=== PATIENT | female | born 2005 | race Caucasian/White ===

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

== ENCOUNTER 2024-11-10 16:51 | Outpatient (REF) | payer MEDICAID, SELFPAY ==
--- OUTSIDE RECORDS SUMMARY | 2024-11-10 19:04 | XMS_ITS | Clinical Summary ---
Author Organization [facility] Address [address] [place] [address] Care Team Providers Care Haunted History Tour Guide Name Role Phone Unavailable Primary Care Provider Unavailabl e Social History Tobacco Use Types Packs/Day Years Used Date Smoking Tobacco: Never Assessed Comments Unknown Sex and Gender Information Value Date Recorded Sex Assigned at Not on file Legal Sex Female 6:15 AM EST Gender Identity Not on file Sexual Orientation Not on file Plan of Treatment Health Maintenance Due Date Last Done Comments Gonorrhea/Chlamydia Screening 2004 Varicella Vaccines (1 of 2 - 13+ 2-dose series) 2017 HPV Vaccines (1 - 3-dose series) 10/21/2019 Meningococcal B Vaccine (1 o f 2 - Standard) 2020 DTaP,Tdap,and Td Vaccines (1 - Tdap) 10/21/2023 Hepatitis B Vaccines (1 of 3 - 19+ 3-dose series) 10/21/2023 COVID-19 Vaccine (1 - 2023-2 5 season) 2024 Influenza Vaccine (Season Ended) 2025 HIB Vaccines Aged Out No longer eligi ble based on patient's age to complete this topic Hepatitis A Vaccines Aged Out No long er eligible based on patient's age to complete this topic IPV Vaccines Aged Out No longer eligi ble based on patient's age to complete this topic MMR Vaccines Aged Out No longer eligi ble based on patient's age to complete this topic Meningococcal ACWY Vaccine Aged Out N o longer eligible based on patient's age to complete this topic Pneumococcal Vaccine: Pediat rics (0 to 5 Years) and At-Risk Patients (6 to 64 Years) Aged Out No longer eligible b ased on patient's age to complete this topic RSV Immunization Patients Un gely 20 months Aged Out No longer eligible b ased on patient's age to complete this topic
--- OUTSIDE RECORDS SUMMARY | 2024-11-10 19:04 | XMS_ITS | Encounter Summary ---
Author Organization [employer] Address [address] [place] [address] Care Team Providers Care Roofing Apprentice Name Role Phone Arlene Zabala VANNA Primary Care Provider [phone] Encounter Details Date Type Department Care Team (Latest Contact Info) Description 11/10/2024 Travel Social History Tobacco Use Types Packs/Day Years Used Date Smoking Tobacco: Never Smokeless Tobacco: Never Alcohol Use Standard Drinks/Week Comments Never 0 (1 standard drink = 0.6 oz pur e alcohol) Depression Answer Date Recorded Patient Health Questionnaire-9 Score 22 11/10/2024 Patient Health Questionnaire-9 Score 22 11/10/2024 Last PHQ-9: Questionnaire Data Not on file 0 11/10/2024 Housing Stability Answer Date Recorded What is your housing situation today? I have nini kirk 11/03/[address] you li ve. Do you have problems with any of the following? None of the above 11/03/2024 Food Insecurity Answer Date Recorded Within the past 12 months, y ou worried that your food would run out before you got money to buy more: Never True 11/03/2024 Within the past 12 months,th e food you bought just didn't last and you didn't have enough money to get more: Never True 02/2025 Transportation Answer Date Recorded In the past 12 months, has l ack of transportation kept you from medical appts, meetings, work or from getting things needed for daily living? No 11/03/2024 Utilities Answer Date Recorded In the past 12 months, has t he electric, gas, oil or water company threatened to shut off services in your home? No 11/03/2024 Depression Answer Date Recorded Patient Health Questionnaire-2 Score 5 11/10/2024 Internet Access Answer Date Recorded Internet Access Q1 Yes 11/03/2024 Internet Access Q2 Not on file 11/03/2024 Comments Unknown Sex and Gender Information Value Date Recorded Sex Assigned at Female 05/28/2022 10:32 AM EDT Legal Sex Female 10:32 AM EDT Gender Identity Female 05/28/2022 10:32 AM EDT Sexual Orientation Straight 05/28/2022 10 :32 AM EDT documented as of this encounter Plan of Treatment Upcoming Encounters Date Type Department Care Team (Late st Contact Info) Description 11/20/2024 1:30 PM EDT Office Visit [facility] [address] [place] [address] Yvette Orellana DDS [address] [place] [address] 02/15/2025 11:30 AM EDT Office Visit [facility] [address] [place] [address] Arlene Zabala NP [address] [place] [address] 03/04/2025 3:00 PM EDT Office Visit [facility] [address] [place] [address] Jo Faulkner documented as of this encounter Visit Diagnoses Not on filedocumented in this encounter Additional Health Concerns Assessment Noted Time PHQ-9 Depression Total Score: 22 025 11:36 AM EDT documented as of this encounter Care Teams Roofing Apprentice Relationship Specialty Start Date End Date Arlene Zabala NP [address] [place] [address] PCP - General Family Medicine 09/03/24 documented as of this encounter
--- OUTSIDE RECORDS SUMMARY | 2024-11-10 19:04 | XMS_ITS | Clinical Summary ---
Author Organization [employer] Address [address] [place] [address] [address] [place] [address] Care Team Providers Care Production Laborer Name Role Phone VjArlene VANNA Primary Care Provider [phone] Allergies No known active allergies Medications * This document contains information received from the source organization and may not represent a complete record from that organization. ibuprofen 400 MG tablet 1 tablet by oral route every 8 hours prn pain or fever as needed 04/23/20 19 Active fluticasone (Flonase) 50 MCG/ACT nasal sprayIndicatio ns:Seasonal allergic rhinitis due to pollen Administer 1 spray into each nostril Once per day. Shake gently. Before first use, prime pump. After use, clean tip and replace cap. 16 g 2 11/11/19 25 026 Active loratadine (Claritin) 10 MG tabletIndicati ons:Seasonal allergic rhinitis due to pollen Take 1 tablet (10 mg) by mouth Once per day. 30 tablet 2 11/11/19 25 025 Active cloNIDine (Catapres) 0.2 MG tablet Take 1 tablet (0.2 mg) by mouth if needed at bedtime (panic and night terrors). 90 tablet 1 11/11/19 25 Active cloNIDine (Catapres) 0.2 MG tablet 1 tablet by oral route one hour beofre bed 10/04/19 22 025 Discontinued(Re order (will not trigger notification to Pharmacy)) Drospirenone (Slynd) 4 MG tablet Take 1 tablet by mouth at bed time. 12/30/19 21 025 Discontinued(Th erapy completed) Active Problems Problem Noted Date Diagnosed Date Healthcare maintenance 11/10/2024 Assessment & Plan (11/10/2024 5:32 PM EDT): Anticipatory guidance reviewed Seasonal allergic rhinitis due to pollen 025 Assessment & Plan (11/10/2024 5:32 PM EDT): Trial claratin prn Tulioe prn Family history of diabetes mellitus 11/10/2024 Assessment & Plan (11/10/2024 5:31 PM EDT): Labs as ordered below Severe depression 11/10/2024 Dietary counseling 11/10/2024 Assessment & Plan (11/10/2024 5:31 PM EDT): Dietary Recommendations: Fruits, vegetables, whole grains, protein foods, and fat-free or low-fat dairy products are healthy choices. Eat different types of protein foods in your diet. This can include seafood, lean meats, poultry, beans, peas, lentils, nuts, seeds, soy products, and eggs. Limit foods and beverages higher in added sugars, saturated fat, and sodium. Exercise Recommendations: At least 150 minutes of moderate-intensity physical activity per week, or an equivalent combination of moderate- and vigorous-intensity activity Exercise counseling 11/10/2024 Anxiety 06/13/2022 Assessment & Plan (11/10/2024 5:31 PM EDT): BH into meet pt, referral for counseling Pt insightful Encounters * This document contains information received from the source organization and may not represent a complete record from that organization. Date Type Department Care Team Description 11/10/2024 11:00 AM EDT Office Visit [facility] MED[facility] [address] [place], [place] [phone] Arlene Zabala NP Healthcare maintenance (Primary Dx); Seasonal allergic rhinitis due to pollen; Family history of diabetes mellitus; Anxiety; Dietary counseling; Exercise counseling 11/10/2024 Travel 11/03/2024 Patient Outreach [facility] [address] [place] [address] Arlene Zabala NP Pre-visit Planning (SDOH negative, Tobacco screening negative) 10/28/2024 Telephone [facility] [address] [place] [address] Tracy Steele MA Chart Prep 10/09/2024 Population Health Risk Score Community [facility] ([facility]) Department [address] [place] [phone] Provider, Population Health Generic 09/09/2024 8:00 AM EST Office Visit [facility] ADULT DENTAL [address] [place] [address] Jerad Guzman DMD History of third molar tooth extraction, unspecified edentulism class (Primary Dx) 09/03/2024 Telephone [facility] [address] [place] [address] Kaylene Sharma MA October recall from Last 3 Months Immunizations Name Administration Dates Next Due DTaP 02/04/2009, 6,06/25/2005,03/27,2004 DTaP / Hep B / IPV 2004 HPV 9-Valent 06/18/2016 HPV, Quadrivalent 11/28/2016,06/18/2016 HPV, Unspecified 03/06/2017,11/28/2016 Hep A, Adult 06/18/2016,11/13/2005 Hep A, ped/adol, 2 dose 06/18/2016,11/13/2005 Hep B, Adolescent or Pediatric 05/04/2005,2004 Hep B, adult 05/04/2005,2004,2004 HiB, unspecified 02/06/2006,03/27/2005, 5 Hib (PRP-T) 2004 IPV 02/04/2009, 5,03/27/2005,12/27,2004 Influenza injectable quadriv alent preservative free 05/22/2021,05/18/2020,05/04/2005 MMR 04/01/2009,11/13/2005 Meningococcal MCV4P ACYW-135 03/01/2021,06/18/20 16 Pneumococcal Conjugate PCV 13 02/06/2006 ,06/25/2005,03/27/2005,01/15 Tdap 06/18/2016 Varicella 02/04/2009,12/28/2005 Social History Tobacco Use Types Packs/Day Years Used Date Smoking Tobacco: Never Smokeless Tobacco: Never Tobacco Cessation:Counseling Given: Not Answered Alcohol Use Standard Drinks/Week Comments Never 0 [...] Orientation Straight 05/28/2022 10 :32 AM EDT Last Filed Vital Signs Vital Sign Reading Time Taken Comments Blood Pressure 128/72 11/10/2024 10:57 AM EDT Pulse 109 11/10/2024 10:57 AM EDT Temperature 36.8 ??C (98.3 ??F) 11/10/2024 1 0:57 AM EDT Respiratory Rate 18 11/10/2024 10:5 7 AM EDT Oxygen Saturation 98% 11/10/2024 10: 57 AM EDT Inhaled Oxygen Concentration - - Weight 60.7 kg (133 lb 12.8 oz) 025 10:57 AM EDT Height 152.4 cm (5') 11/10/2024 10:57 AM EDT Body Mass Index 26.13 11/10/2024 10:57 AM EDT Plan of Treatment Upcoming Encounters Date Type Department Care Team (Late st Contact Info) Description 11/20/2024 1:30 PM EDT Office Visit [facility] ADULT DENTAL [address] [place] [address] Yvette Orellana, DDS [address] [place] [address] 02/15/2025 11:30 AM EDT Office Visit [facility] [address] [place] [address] Arlene Zabala NP [address] [place] [address] 03/04/2025 3:00 PM EDT Office Visit [facility] ADULT DENT[facility] [address] [place] [address] Jo Faulkner Health Maintenance Due Date Last Done Comments Chlamydia and Gonorrhea Screening 2004 HIV Screening 2004 Dental Prophylaxis 12/12/2018 06/13/2018 Family Planning (PISQ) 10/21/2019 Hepatitis C Screening 2022 Dental Oral Exam 02/22/2024 08/23/2023, 06/13/2018 COVID-19 Vaccine ( season) 2024 12/20/2022 Influenza Vaccine (#1) 2024 , 05/18/2020, 05/04/2005 Dental X-Ray: Bitewings 08/24/2024 08/23/2023, 06/13 Depression Monitoring 05/12/2025 11/10/2024, 025 Alcohol/Substance Use Screening 11/10/2025 11/10/2024 Depression Screening 11/10/2025 11/10/2024, 11/11/19 25 SDOH Screening 11/10/2025 11/10/2024 Tobacco Screening 11/10/2025 11/10/2024 DTaP/Tdap/Td Vaccines (7 - Td or Tdap) 06/18/2026 06/18/2016, 02/04/2009, 02/06/2006, Additional history exists Dental X-Ray: Full Mouth 09/26/2026 024, 08/23/2023, 06/13/2018 Zoster Vaccines (1 of 2) 2054 RSV Patients and Patients Aged 60 years or older (1 - 1-dose 75+ series) 10/21/2079 Hepatitis B Vaccines Completed 05/04/2005, 05/04/2005, 2004, Additional history exists HIB Vaccines Completed 02/06/2006, 02/28, 2004, Additional history exists Pneumococcal Vaccine: Pediatrics (0 to 5 Years) and At-Risk Patients (6 to 49) Years) Completed 02/06/2006, 06/25/2005, 03/27/2005, Additional history exists IPV Vaccines Completed 02/04/2009, 05/30, 03/27/2005, Additional history exists Hepatitis A Vaccines Completed 06/18/2016, 06/18/2016, 11/13/2005, Additional history exists HPV Vaccines Completed 03/06/2017, 09/2016, 11/28/2016, Additional history exists Meningococcal Vaccine Completed 03/01/2021, 016 RSV under 20 months Aged Out No longe r eligible based on patient's age to complete this topic Rotavirus Vaccines Aged Out No longer eligible based on patient's age to complete this topic Procedures Procedure Name Priority Date/Time Associated Diagnosis Comments 16 EXTRACTION, ERUPTED TOOTH OR EXPOSED ROOT (ELEVATION/FORCEPS REMOVAL) Routine 09/09/2024 8:00 AM EST 32 REMOVAL OF IMPACTED TOOTH - PARTIALLY BONY Routine 09/09/2024 8:00 AM EST 17 REMOVAL OF IMPACTED TOOTH - PARTIALLY BONY Routine 09/09/2024 8:00 AM EST 1 REMOVAL OF IMPACTED TOOTH - PARTIALLY BONY Routine 09/09/2024 8:00 AM EST PANORAMIC RADIOGRAPHIC IMAGE Routine 09/25/2023 11:15 AM EST INTRAORAL - COMPLETE SERIES OF RADIOGRAPHIC IMAGES Routine 08/23/2023 3:00 PM EST Encounter for dental examination Dental caries PERIODIC ORAL EVALUATION - ESTABLISHED PATIENT Routine 08/23/2023 3:00 PM EST Encounter for dental examination Dental caries PROPHYLAXIS - CHILD Routine 06/13/2018 1 2:00 AM EST from Last 3 Months or Most Recently Relevant to Health Maintenance Insurance DENTAL-[facility] MEDICAID STAND CHILD [facility] C3 DENTAL-[facility] MEDICAID STAND CHILD Care Teams Production Laborer Relationship Specialty Start Date End Date Arlene Zabala NP [address] [place] [id number] PCP - General Family Medicine 09/03/24
--- OUTSIDE RECORDS SUMMARY | 2024-11-10 19:04 | XMS_ITS | Encounter Summary ---
Author Organization [employer] Address [address] [place] [address] [address] [place] [address] Care Team Providers Care Wardrobe Assistant Name Role Phone DonnieArlene renee VANNA Primary Care Provider [phone] Reason for Visit * Reason Onset Date Comments returning call scheduling for OS 08/11/2024 Encounter Details Date Type Department Care Team (Late Contact Info) Description 08/11/2024 Telephone [facility] ADULT DENTAL [address] [place] [address] Jerad Guzman DMD [address] [place] [address] returning call scheduling for OS Social History Tobacco Use Types Packs/Day Years Used Date Smoking Tobacco: Never Smokeless Tobacco: Never Alcohol Use Standard Drinks/Week Comments Never 0 (1 standard drink = 0.6 oz pur e alcohol) Comments Unknown Sex and Gender Information Value Date Recorded Sex Assigned at Female 05/28/2022 10:32 AM EDT Legal Sex Female 10:32 AM EDT Gender Identity Female 05/28/2022 10:32 AM EDT Sexual Orientation Straight 05/28/2022 10 :32 AM EDT documented as of this encounter Miscellaneous Notes * Telephone Encounter - Kimberly Rosales - 08/11/2024 1:08 PM EST Patient returning call placed today to schedule appt with Dr. Guzman for extractions. Dental in department meeting. Pls return call to patient for scheduling DR documented in this encounter Plan of Treatment Upcoming Encounters Date Type Department Care Team (Late Contact Info) Description 11/20/2024 1:30 PM EDT Office Visit [facility] ADULT DENTAL [address] [place] [address] Yvette Orellana, DDS [address] [place] [address] 02/15/2025 11:30 AM EDT Office Visit [facility] MEDICINE [address] [place] [address] Arlene Zabala NP [address] [place] [address] 03/04/2025 3:00 PM EDT Office Visit [facility] ADULT DENTAL [address] [place] [address] Jo Faulkner documented as of this encounter Visit Diagnoses Not on filedocumented in this encounter Care Teams Wardrobe Assistant Relationship Specialty Start Date End Date Arlene Zabala NP [address] [place] [id number] PCP - General Family Medicine 09/03/24 documented as of this encounter
--- OUTSIDE RECORDS SUMMARY | 2024-11-10 19:04 | XMS_ITS | Encounter Summary ---
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 Name Role Phone Arlene Zabala NP Primary Care Provider [phone] Reason for Referral * Consultation (Routine) - Authorized Specialty Diagnoses / Procedures Referred By Anibal lam Referred To Contact Behavioral Health Diagnoses Anxiety Arlene Zabala NP [address] [place] [address] Phone: tel: fax: Referral ID Status Reason Start Date Expiration Date Visits Requested Visits Authorized [id number] Authorized Specialty Services Required 11/10/2024 11/10/2025 1 1 * Consultation (Routine) - Authorized Specialty Diagnoses / Procedures Referred By Anibal lam Referred To Contact Optometry Diagnoses Healthcare maintenance Arlene Zabala NP [address] [place] [address] Phone: tel: fax: [facility] OPTOMETRY [address] [place] [id number] Phone: tel: fax: Referral ID Status Reason Start Date Expiration Date Visits Requested Visits Authorized [id number] Authorized Consult and Treat 11/10/2024 11/10/2025 1 1 Encounter Details Date Type Department Care Team (Late st Contact Info) Description 11/10/2024 11:00 AM EDT Office Visit [facility] MEDICINE [address] [place] [address] Arlene Zabala, VANNA [address] [place] [address] Healthcare maintenance (Primary Dx); Seasonal allergic rhinitis due to pollen; Family history of diabetes mellitus; Anxiety; Dietary counseling; Exercise counseling Social History Tobacco Use Types Packs/Day Years [...] AM EDT documented as of this encounter Last Filed Vital Signs Vital Sign Reading [...] Mass Index 26.13 11/10/2024 10:57 AM EDT documented in this encounter Progress Notes * Arlene Zabala NP - 11/10/2024 11:00 AM EDT Subjective: Santino Bellamy is a 19 y.o. female who presents to the office for a physical exam. Interim history: No major health issues Current concerns: Frequent uri symptoms this past winter. Frequent nasal congestion Mh- had a counselor, was helpful interested in again, has hurt self before, occasionally has thoughts of self harm , since 2017, for a few years stopped in 2020, 02/2024 last cut, last urge last week. Insomnia- noted benefit hx from clonidine Patient Active Problem List Diagnosis Anxiety Healthcare maintenance Seasonal allergic rhinitis due to pollen Family history of diabetes mellitus Severe depression ([facility]/HCC) Dietary counseling Exercise counseling No past surgical history on file. No family history on file. 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 No Known Allergies Review of Systems Constitutional: Negative for activity change and appetite change. HENT: Positive for congestion. Negative for dental problem, ear discharge and ear pain. Respiratory: Negative for apnea and chest tightness. Cardiovascular: Negative for chest pain and leg swelling. Gastrointestinal: Negative for anal bleeding and constipation. Genitourinary: Negative for difficulty urinating. Musculoskeletal: Negative for arthralgias. Skin: Negative for color change. Neurological: Negative for dizziness. Hematological: Negative for adenopathy. Psychiatric/Behavioral: Positive for dysphoric mood and self-injury. Negative for agitation. Vitals: 11/10/24 1057 BP: 128/72 BP Location: Left arm Patient Position: Sitting BP Cuff Size: Adult Pulse: 109 Resp: 18 Temp: 98.3 ??F (36.8 ??C) TempSrc: Temporal SpO2: 98% Weight: 133 lb 12.8 oz (60.7 kg) Height: 5' (1.524 m) Physical Exam Vitals reviewed. HENT: Head: Normocephalic and atraumatic. Nose: Nose normal. Eyes: Conjunctiva/sclera: Conjunctivae normal. Cardiovascular: Rate and Rhythm: Normal rate and regular rhythm. Pulmonary: Effort: Pulmonary effort is normal. Breath sounds: Normal breath sounds. Musculoskeletal: Cervical back: Normal range of motion and neck supple. Neurological: General: No focal deficit present. Mental Status: She is alert. Problem List Items Addressed This Visit Anxiety Current Assessment & Plan into meet pt, referral for counseling Pt insightful Relevant Orders Referral to Behavioral Health Healthcare maintenance - Primary Current Assessment & Plan Anticipatory guidance reviewed Relevant Orders Referral to [facility] Eye Care Chlamydia/N. Gonorrhoeae RNA, TMA, Urogenitial Seasonal allergic rhinitis due to pollen Current Assessment & Plan Trial claratin prn Flonase prn Relevant Medications fluticasone (Flonase) 50 MCG/ACT nasal spray loratadine (Claritin) 10 MG tablet Family history of diabetes mellitus Current Assessment & Plan Labs as ordered below Relevant Orders Lipid Panel, Standard Comprehensive Metabolic Panel Hemoglobin A1c Dietary counseling Current Assessment & Plan Dietary Recommendations: Fruits, vegetables, whole grains, protein foods, and fat-free or low-fat dairy products are healthychoices. Eat different types of protein foods in your diet. This can include seafood, lean meats, poultry, beans, peas, lentils, nuts, seeds, soy products, and eggs. Limit foods and beverages higher in added sugars, saturated fat, and sodium. Exercise Recommendations: At least 150 minutes of moderate-intensity physical activity per week, or an equivalent combinationof moderate- and vigorous-intensity activity Exercise counseling Routine Screening and Health Maintenance Optometry: No Dentist: Yes Current Outpatient Medications Medication Sig Dispense Refill cloNIDine (Catapres) 0.2 MG tablet Take 1 tablet (0.2 mg) by mouth if needed at bedtime (panic and night terrors). 90 tablet 1 fluticasone (Flonase) 50 MCG/ACT nasal spray Administer 1 spray into each nostril Once per day. Shake gently. Before first use, prime pump. After use, clean tip and replace cap. 16 g 2 ibuprofen 400 MG tablet 1 tablet by oral route every 8 hours prn pain or fever as needed loratadine (Claritin) 10 MG tablet Take 1 tablet (10 mg) by mouth Once per day. 30 tablet 2 No current facility-administered medications for this visit. Immunization History Administered Date(s) Administered DTaP 2004, 03/27/2005, 06/25/2005, 02/06/2006, 02/04/2009 DTaP / Hep B / IPV 2004 HPV 9-Valent 06/18/2016 HPV, Quadrivalent 06/18/2016, 11/28/2016 HPV, Unspecified 11/28/2016, 03/06/2017 Hep A, Adult 11/13/2005, 06/18/2016 Hep A, ped/adol, 2 dose 11/13/2005, 06/18/2016 Hep B, Adolescent or Pediatric 2004, 05/04/2005 Hep B, adult 2004, 2004, 05/04/2005 HiB, unspecified 2004, 03/27/2005, 02/06/2006 Hib (PRP-T) 2004 IPV 2004, 2004, 03/27/2005, 06/25/2005, 02/04/2009 Influenza injectable quadrivalent preservative free 05/04/2005, 05/18/2020, 05/22/2021 MMR 11/13/2005, 04/01/2009 Meningococcal MCV4P [id number]-135 06/18/2016, 03/01/2021 Pfizer Covid-19 Vaccine 12+ Bivalent 12/20/2022 Pneumococcal Conjugate PCV 13 01/15/2005, 03/27/2005, 06/25/2005, 02/06/2006 Tdap 06/18/2016 Varicella 12/28/2005, 02/04/2009 documented in this encounter Miscellaneous Notes * Assessment & Plan Note - Arlene Zabala NP - 11/10/2024 5:32 PM EDTAssociated Problem(s): Seasonal allergic rhinitis due to pollen Trial claratin prn Flonase prn * Assessment & Plan Note - Arlene Zabala NP - 11/10/2024 5:32 PM EDTAssociated Problem(s): Healthcare maintenance Anticipatory guidance reviewed * Assessment & Plan Note - Arlene Zabala NP - 11/10/2024 5:31 PM EDTAssociated Problem(s): Family history of diabetes mellitus Labs as ordered below * Assessment & Plan Note - Arlene Zabala NP - 11/10/2024 5:31 PM EDTAssociated Problem(s): Dietary counseling Dietary Recommendations: Fruits, vegetables, whole grains, protein foods, and fat-free or low-fat dairy products are healthychoices. Eat different types of protein foods in your diet. This can include seafood, lean meats, poultry, beans, peas, lentils, nuts, seeds, soy products, and eggs. Limit foods and beverages higher in added sugars, saturated fat, and sodium. Exercise Recommendations: At least 150 minutes of moderate-intensity physical activity per week, or an equivalent combinationof moderate- and vigorous-intensity activity * Assessment & Plan Note - Arlene Zabala NP - 11/10/2024 5:31 PM EDTAssociated Problem(s): Anxiety BH into meet pt, referral for counseling Pt insightful documented in this encounter Plan of Treatment Upcoming Encounters Date Type Department Care Team (Late st Contact Info) Description 11/20/2024 1:30 PM EDT Office Visit [facility] ADULT DENTAL [address] [place] [address] Yvette Orellana, DDS [address] [place] [address] 02/15/2025 11:30 AM EDT Office Visit [facility] MEDICINE [address] [place] [address] Arlene Zabala NP [address] [place] [address] 03/04/2025 3:00 PM EDT Office Visit [facility] ADULT DENTAL [address] [place] [address] Jo Faulkner Scheduled Orders Name Type Priority Associated Diagnoses Orde r Schedule Chlamydia/N. Gonorrhoeae RNA, TMA, Urogenitial Microbiology Routine Healthcare maintenance Ordered: 11/10/2024 Lipid Panel, Standard Lab Routine Family history of diabetes mellitus Expected: 11/10/2024 (Approximate), Expires: 11/10/2025 Comprehensive Metabolic Panel Lab Routine Family history of diabetes mellitus Expected: 11/10/2024 (Approximate), Expires: 11/10/2025 Hemoglobin A1c Lab Routine Family history of diabetes mellitus Expected: 11/10/2024 (Approximate), Expires: 11/10/2025 Scheduled Referrals Name Type Priority Associated Diagnoses Orde r Schedule Referral to [facility] Eye Care Outpatient Referral Routine Healthcare maintenance Expected: 11/10/2024 (Approximate), Expires: 11/10/2025 Referral to Behavioral Health Outpatient Referral Routine Anxiety Expected: 11/10/2024 (Approximate), Expires: 11/10/2025 documented as of this encounter Visit Diagnoses Diagnosis Healthcare maintenance- Primary Seasonal allergic rhinitis due to pollen Family history of diabetes mellitus Anxiety Anxiety state, unspecified Dietary counseling Dietary surveillance and counseling Exercise counseling documented in this encounter Additional Health Concerns Assessment Noted Time PHQ-9 Depression Total Score: 22 025 11:36 AM EDT documented as of this encounter 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
[2024-11-11 03:19] LABS: CT PCR NOT DETECTED (Not Detect.); NG PCR NOT DETECTED (Not Detect.)
== END 2024-11-10 16:52 | disposition home or self-care (01) ==
LOC: HO.LNP 16:51
PROVIDERS: Visit Provider Nurse Practitioner Family
DX: Z00.00 Encounter for general adult medical examination without abnormal findings (principal); Z11.3 Encounter for screening for infections with a predominantly sexual mode of transmission
CPT/HCPCS: 87491; 87591